=== PATIENT | male | born 1995 | race Caucasian/White ===

== ENCOUNTER 2016-09-30 03:44 | Emergency (ER) | payer OTHER ==
[~2016-09-30] VITALS: Ht 170.2 cm; Wt 64.9 kg
[2016-09-30 03:52] VITALS: TEMP 37.7; Ht 170.2 cm; Wt 64.9 kg
[2016-09-30] MEDS ORDERED: SODIUM CHLORIDE 0.9% 1000ML 2,000 ML IV STA (04:06)
[2016-09-30] MEDS ORDERED: ACETAMINOPHEN 500 MG TAB PO STA ×2 (04:06→06:21)
[2016-09-30 04:59] LABS: URINE APPEARANCE CLEAR (CLEAR); URINE BILIRUBIN NEG (NEG); URINE COLOR YELLOW; URINE NITRITE NEG (NEG); URINE SPECIFIC GRAVITY 1.021 (1.000-1.030); UROBILINOGEN NEG (NEG); ZZUR CULT IF INDIC CLEAN CATCH NO
[2016-09-30 05:07] LABS: MANUAL MICROSCOPIC REQUIRED? NO; REVIEW REQ? NO
[2016-09-30 05:12] LABS: BUN/CREATININE RATIO 10.3 (10-20); CALCIUM 9.1 mg/dl (8.5-10.1); CREATININE 0.97 mg/dl (0.60-1.40); POTASSIUM 3.3 mmol/L (3.5-5.1)
[2016-09-30] MEDS ORDERED: POTASSIUM CHLORIDE 10 MEQ TABCR PO STA (05:26)
[2016-09-30] MEDS ORDERED: IBUP-1459 PO (05:47)
--- NOTE | 2016-09-30 06:12 | EMERGENCY ROOM VISIT NOTE ---
History First contact with patient: 03:51 Chief Complaint: OTHER COMPLAINT Stated Complaint: FEVER,TESTICLE DISCOMFORT,COUGH,NUMBNESS IN L FOOT History of Present Illness The patient is a 21 year old male who presents to the Emergency Room with complaints of fever, chills, fatigue, sore throat, swollen lymph nodes and testicular discomfort with swelling for the past few days. Patient states immunizations are current. Patient denies risk for STIs. Patient denies penile discharge, penile pain, urinary symptoms, chest pain, dyspnea, neck stiffness, productive cough, abdominal pain, vomiting, diarrhea, back pain. He is tolerating by mouth fluids and food. He's been taken Motrin for his fever. No temperature was taken. No recent travel. No sick contacts per patient. Patient is a [employer] student and there has been a recent outbreak of mumps though. Review of Systems See HPI for pertinent positives & negatives. A total of 10 systems reviewed and were otherwise negative. Past Medical/Surgical History None Social History Smoking Status: Never Smoker Smokeless Tobacco Use: No Drug Use: none Marital Status: single Occupation Status: [employer] student Current/Historical Medications Scheduled PRN Ibuprofen (Motrin), 400 MG PO Q6H PRN for Pain Allergies Coded Allergies: No Known Allergies (Unverified , 09/30/16) Physical Exam Vital Signs Date Time Temp Pulse Resp B/P Pulse Ox O2 Delivery O2 Flow Rate FiO2 09/30/16 04:41 100 20 143/89 98 Room Air 09/30/16 03:52 37.7 112 20 148/73 98 Room Air Physical Exam VITALS: Vitals are noted on the nurse's note and reviewed by myself. Vital signs low-grade fever. GENERAL: Pleasant male, in no acute distress, nondiaphoretic, well-developed well-nourished. SKIN: The skin was without rashes, erythema, edema, or bruising. There is no tenting of the skin. Capillary reflex less than 2 seconds. HEAD: Normocephalic atraumatic. EARS: External auditory canals clear, tympanic membranes pearly bryant without erythema or effusion bilaterally. EYES: Pupils equal round and reactive to light and accommodation. Conjunctivae without injection, sclerae without icterus. Extraocular movements intact. NOSE: Patent, turbinates without inflammation or discharge. No sinus tenderness. MOUTH: Mucous membranes moist. Pharynx without erythema or exudate. Uvula midline. Airway patent. Tongue does not deviate. NECK: Supple without nuchal rigidity. Shoddy anterior cervical lymphadenopathy and submandibular lymphadenopathy. No thyromegaly. Cervical spine is nontender. No JVD. No meningeal signs HEART: Regular rate and rhythm without murmurs gallops or rubs. LUNGS: Clear to auscultation bilaterally without wheezes, rales or rhonchi. No dullness to percussion. No retractions or accessory muscle use. ABDOMEN: Positive bowel sounds x 4. Normal tympanic percussion. Soft, nontender, without masses or organomegaly. Arredondo sign negative. No guarding or rebound tenderness. No CVA tenderness exam: Normal external male genitalia with large mole present on scrotum unchanged per patient, bilateral testicles edematous and tender to palpation, no penile discharge or rashes appreciated. Ambulatory Care present MUSCULOSKELETAL: No muscle atrophy, erythema, or edema noted. NEURO: Patient was alert and oriented to person place and time. Normal sensation to light and sharp touch. No focal neurological deficits. Medical Decision & Procedures Laboratory Results 09/30/16 04:33 Test 09/30/16 04:33 Urine Color YELLOW Urine Appearance CLEAR (CLEAR) Urine pH 6.0 (4.5-7.5) Urine Specific Rover 1.021 (1.000-1.030) Urine Protein NEG (NEG) Urine Glucose (UA) NEG (NEG) Urine Ketones NEG (NEG) Urine Occult Blood NEG (NEG) Urine Nitrite NEG (NEG) Urine Bilirubin NEG (NEG) Urine Urobilinogen NEG (NEG) Urine Leukocyte Esterase NEG (NEG) Anion Gap 7.0 mmol/L (3-11) Est Creatinine Clear Calc Drug Dose 109.7 ml/min Estimated GFR () 127.9 Estimated GFR (Non- 110.4 BUN/Creatinine Ratio 10.3 (10-20) Calcium Level 9.1 mg/dl (8.5-10.1) Amylase Level 92 U/L (25-115) Influenza Type A Antigen Neg for Influ A (NEG) Influenza Type B Antigen Neg for Influ B (NEG) Medications Administered Medications (Trade) Dose Ordered Sig/Sandra Route Start Time Stop Time Status Last Admin Dose Admin Acetaminophen 1000 mg 1,000 mg NOW STAT PO 09/30/16 04:06 09/30/16 04:10 DC 09/30/16 04:38 1,000 MG Sodium Chloride (Nss 1000ml) 2,000 ml @ 999 mls/hr Q2H1M STAT IV 09/30/16 04:06 09/30/16 06:06 DC 09/30/16 04:39 999 MLS/HR Potassium Chloride (Klor-Con M10) 20 meq NOW STAT PO 09/30/16 05:26 09/30/16 05:27 DC 09/30/16 05:49 20 MEQ ED Course Prior records/ancillary studies reviewed. Triage Nursing notes reviewed. Additional history obtained from friends. The patient's history was concerning for fever. Differential diagnosis: Etiologies such as mumps, parotitis, STI, viral syndrome, otitis, pharyngitis, pneumonia, influenza, meningitis, urinary tract infection, sepsis, bacteremia, as well as others were entertained. Physical examination: Patient was alert, oriented and tolerating fluids ER treatment provided: Tylenol, IV fluids On reassessment the patient felt better. Diagnostics interpreted by me: The labs revealed no leukocytosis. Hypokalemia and this is replaced orally. Mom's test pending Imaging studies: Chest x-ray with no acute consolidation, pneumothorax or free air per my interpretation. Testicular ultrasound is concerning for possible mumps. Patient had bilaterally increase vascularity concerning for possible orchitis per radiology My charge nurse Alejandro, states he will contact the CDC in regards to possible mumps in this patient. This appears to be consistent with possible mumps. Patient was neurovascularly and neurologically intact. No signs of meningitis. No torsion on ultrasound. He was advised take all medications as directed. He was advised to stay at home for the next 5 days as he is highly contagious and not to make contact with anybody. He was advised to review his test results with health services for possible mumps. He was advised to have all food delivered to his home. He was advised follow-up with health services in a week or here in the ER sooner for high fevers, lethargy, neck stiffness, worsening signs or symptoms or as needed. By the evaluation outlined above emergent etiologies such as otitis, pharyngitis, pneumonia, meningitis, urinary tract infection, sepsis, bacteremia , as well as others were deemed relatively unlikely. The pt informed about the findings as listed above. All questions were answered and pleased with the treatment. Return instructions were outlined and the patient was discharged in stable condition. Referral: The patient was referred back to their primary care physician for follow-up in 1 week for a recheck of the current condition. Case reviewed with my Attending Medical Decision As above Impression Primary Impression: Mumps orchitis Departure Information Dispostion Home / Self-Care Condition GOOD Referrals No Doctor, Assigned (PCP) Patient Instructions My [facility] Additional Instructions Do not leave your apartment for 5 days. You are highly contagious. Have all food delivered to your house and do not make contact with anyone for the next 5 days. Acetaminophen(Tylenol) may be used for fever or pain. Use 1000mg every six hours as needed. Avoid using more than 3000mg in a 24 hour period. (AND/OR) Ibuprofen(Motrin, Advil) may be used for fever or pain. Use 600mg every six hours as needed. Take with food. Avoid using more than 2400mg in a 24 hour period. Do not use 2400mg per day for more than three consecutive days without physician direction. Prolonged inappropriate use can lead to stomach upset or ulcers. Afrin nasal spray: 2-3 sprays to each nostril twice daily as needed for congestion. Do not use for more than 3-4 days because it can lead to worsening rebound congestion. Pseudoephedrine(Sudaphed): 30-60mg every 6 hours as needed for nasal congestion. Do not take this with other stimulant products or supplements. Rest and drink plenty of fluids. Controlling your fever with Tylenol and Ibuprofen as above will make you feel better. Wash your hands after nose blowing, sneezing, or coughing. Most germs are spread through contact, therefore improper hygiene may result in your close contacts and loved ones becoming ill just like you. Continue current medications. Return to the ER for severe headache, neck stiffness, chest pain, difficulty breathing, fevers, vomiting, worsening of your condition, or as needed. Follow up with your primary physician in 1 week for a recheck of your current condition and test results.
[2016-09-30] MEDS ORDERED: MOTRIN HOME PACK 600 MG (4)BTL PO ONE (06:30)
[2016-09-30 06:37] VITALS: BP 136/70; PULSE 76; O2SAT 98
[2016-09-30 06:49] LABS: BASO % 0.2 %; BASO ABS # 0.01 K/uL (0-0.2); COMPLETE YES; EOS % 1.4 %; HEMATOCRIT 43.9 % (42-52); IG% 0.3 %; LYMPH % 13.2 %; LYMPH ABS # 0.76 K/uL (1.2-3.4); MEAN CELL VOLUME 72.4 fL (80-100); MEAN CORPUSCULAR HEMOGLOBIN 24.1 pg (25-34); MEAN CORPUSCULAR HGB CONC 33.3 g/dl (32-36); MEAN PLATELET VOLUME 10.5 fL (7.4-10.4); MONO % 11.1 %; NEUT % 73.8 %; PLATELET COUNT 222 K/uL (130-400); RED BLOOD COUNT 6.06 M/uL (4.7-6.1); WHITE BLOOD COUNT 5.74 K/uL (4.8-10.8)
[2016-09-30 06:56] LABS: INFLUENZA A PCR Neg for Influ A (NEG); INFLUENZA B PCR POS for Influ B (NEG)
--- NOTE | 2016-09-30 07:37 | DIAGNOSTIC IMAGING REPORT ---
TESTICULAR ULTRASOUND HISTORY: Testicular pain B testicle swelling COMPARISON: None. FINDINGS: Right testis: Maximum dimension 4.6 cm. Subtle increase in vascular flow small right-sided varicocele Left testis: Maximum dimension 4.3 cm. Slight increase in vascular flow. Small left varicocele IMPRESSION: Slight increase in vascular flow to both testis suggesting mild orchitis. 2. No evidence for abscess or collection. 3. Small bilateral varicoceles Electronically signed by: Agustín Hebert M.D. 09/30/2016 7:35 AM Dictated Date/Time: 09/30/2016 7:34 AM
--- NOTE | 2016-09-30 08:00 | DIAGNOSTIC IMAGING REPORT ---
CHEST 2 VIEWS ROUTINE HISTORY: cough/fever COMPARISON: None. FINDINGS: The lungs are clear. Cardiac silhouette is normal in size. No pleural effusions. No pneumothorax. Incidental note is made of a small right azygos lobe. IMPRESSION: No acute process. Electronically signed by: Barrington Rock M.D. 09/30/2016 7:58 AM Dictated Date/Time: 09/30/2016 7:58 AM
== END 2016-09-30 06:39 | disposition home or self-care (01) ==
LOC: C.EDB 03:46 → C.EDA 06:39
DX: B26 Mumps (principal)